=== PATIENT | female | born 1960 | race African-American/Black ===

== ENCOUNTER 2016-10-24 06:04 | Day surgery (SDC) | payer MEDICAID ==
[~2016-10-24] VITALS: Ht 157.5 cm; Wt 50.8 kg
[2016-10-24 06:43] VITALS: BP 148/93
[2016-10-24 13:09] VITALS: BP 153/95
== END 2016-10-24 10:50 | disposition home or self-care (01) ==
LOC: DS 06:04 → GI 07:30 → OR 07:30 → DS 10:50
PROVIDERS: Internal Medicine Gastroenterology
PROC: 0DJD8ZZ Inspection of Lower Intestinal Tract, Via Natural or Artificial Opening Endoscopic (ICD-10-PCS; principal; 2016-10-24 07:30)
DX: Z12.11 Encounter for screening for malignant neoplasm of colon (principal); K62.9 Disease of anus and rectum, unspecified
CPT/HCPCS: 45378; J1200; J1610; J2250; J2310; J3010; J3490